=== PATIENT | female | born 1930 | race Caucasian/White ===

== ENCOUNTER 2017-01-17 18:48 | Emergency (ER) | payer MEDICARE ==
--- NOTE | 2017-01-17 22:39 | ER Document Report ---
ED General - General Chief Complaint: Arm Pain Stated Complaint: FALL/RIGHT ARM LACERATION Time Seen by Provider: 01/17/17 22:18 Notes: Patient is a 86-year-old female who presents after a fall. Patient was walking outside and fell and has a skin tear to her left forearm. She denies any other injuries. She denies any her head. No neck pain or back pain. No hip or pelvis pain. She has been up walking since the incident. Patient has no other complaints at this time. TRAVEL OUTSIDE OF THE [place] IN LAST 30 DAYS: No - Related Data Allergies/Adverse Reactions: No Known Allergies Allergy (Unverified 01/17/17 18:56) Past Medical History - Social History Smoking Status: Never Smoker Frequency of alcohol use: None Drug Abuse: None Family History: Reviewed & Not Pertinent Patient has suicidal ideation: No Patient has homicidal ideation: No Renal/ Medical History: Denies: Hx Peritoneal Dialysis Review of Systems - Review of Systems Notes: My Normal Review Basic REVIEW OF SYSTEMS: CONSTITUTIONAL : Denies fever, chills, or sweats. Denies recent illness. EENT: Denies eye, ear, throat, or mouth pain or symptoms. Denies nasal or sinus congestion. CARDIOVASCULAR: Denies chest pain. RESPIRATORY: Denies cough, cold, or chest congestion. Denies shortness of breath, difficulty breathing, or wheezing. MUSCULOSKELETAL: Denies neck or back pain or joint pain or swelling. SKIN: Skin tear left forearm. NEUROLOGICAL: Denies altered mental status or loss of consciousness. Denies headache. Denies weakness or paralysis or loss of use of either side. Denies problems with gait or speech. Denies sensory or motor loss. ALL OTHER SYSTEMS REVIEWED AND NEGATIVE. Physical Exam - Vital signs Vitals: Temp Pulse Resp BP Pulse Ox 97.9 F 73 20 146/65 H 95 01/17/17 18:58 01/17/17 18:58 01/17/17 18:58 01/17/17 18:58 01/17/17 18:58 - Notes Notes: General Appearance: Well nourished, alert, cooperative, no acute distress, no obvious discomfort. Well appearing. Vitals: reviewed, See vital signs table. Head: no swelling or tenderness to the head Eyes: PERRL, EOMI, Conjuctiva clear Mouth: No decreasd moisture Throat: No tonsillar inflammation, No airway obstruction, No lymphadenopathy Neck: Supple, no neck tenderness, Back: No tenderness to palpation of lumbar or thoracic spine. No step-offs or deformities. Lungs: No wheezing, No rales, No rhonci, No accessory muscle use, good air exchange bilaterally. Heart: Normal rate, Regular rythm, No murmur, no rub Abdomen: Normal BS, soft, No rigidity, No abdominal tenderness, No guarding, no rebound, no abdominal masses, no organomegaly Extremities: strength 5/5 in all extremities, good pulses in all extremities, no swelling or tenderness in the extremities, no edema. Skin: Approximately 10 cm long skin tear on the left forearm. No active bleeding. Neuro: speech clear, oriented x 3, normal affect, responds appropriately to questions. Course - Vital Signs Vital signs: Temp Pulse Resp BP Pulse Ox 97.8 F 64 18 128/70 H 100 01/17/17 22:44 01/17/17 22:44 01/17/17 22:44 01/17/17 22:44 01/17/17 22:44 - Transfer of Care Notes: 01/18/17 06:18 I cleaned the wounds thoroughly irrigated with saline and cleaned with peroxide. Steri-Strips to pull the skin edges together and covered it with a dressing. Patient encouraged to return to ER if she has any redness or swelling over the skin tear itself. Patient agrees with plan will be discharged home. Dictation of this chart was performed using voice recognition software; therefore, there may be some unintended grammatical errors. Discharge - Discharge Clinical Impression: Skin tear Condition: Good Disposition: HOME, SELF-CARE Additional Instructions: Please return to the ER immediately if you develop any redness or swelling to the arm or any signs of infections. You can remove the dressing from your arm in 3 days. After you remove the dressing you can gently clean with soap and water and recover with a clean, nonstick dressing. Referrals: ALEK JACOBS PA-C [Primary Care Provider] - Follow up as needed
[2017-01-17 22:45] VITALS: BP 128/70
== END 2017-01-17 23:05 | disposition home or self-care (01) ==
LOC: ER 18:48
DX: S51.812A Laceration without foreign body of left forearm, initial encounter (principal); W19.XXXA Unspecified fall, initial encounter; Y93.89 Activity, other specified; Y92.009 Unspecified place in unspecified non-institutional (private) residence as the place of occurrence of the external cause
CPT/HCPCS: 99283

== ENCOUNTER → 2017-08-26 | Outpatient (CLI) | payer MEDICARE, OTHER | LOC: OD 12:06 | PROVIDERS: ATTEND Nurse Practitioner Acute Care | DX: N39.0 Urinary tract infection, site not specified (principal) | CPT/HCPCS: 87086 ==

== ENCOUNTER 2017-12-14 13:57 | Inpatient (IN) | payer MEDICARE ==
[2017-12-14] MEDS ORDERED: ACETAMINOPHEN 325 MG TABLET PO ONE (14:19)
[2017-12-14] MEDS ORDERED: DIPH/PERTUSS(ACELL)/TETANUS VAC/PF 0.5 ML SYR (>=10YO) IM ONE (14:19)
--- NOTE | 2017-12-14 14:27 | ER Document Report ---
ED General - General Chief Complaint: Fall Injury Stated Complaint: POSSIBLE LEG FRACTURE Time Seen by Provider: 12/14/17 14:09 Mode of Arrival: Medic Information source: Patient, Relative Notes: 87-year-old female with dementia presents via EMS from home after a fall. Her family patient had 2 falls today that were unwitnessed. The first fall happened early this morning where she struck her left elbow against a table causing a significant skin tear. The second fall happened just prior to arrival while the patient was walking out of the bathroom. Family member states that they heard the fall and attended to the patient right away. Patient was unable to get up independently. She is unsure whether she struck her head or lost consciousness. She denies any preceding chest pain, shortness of breath, palpitations. Patient currently only takes a multivitamin. Patient currently complaining of right knee, right foot and ankle pain. TRAVEL OUTSIDE OF THE [place] IN LAST 30 DAYS: No - HPI Onset: Just prior to arrival Quality of pain: Achy, Throbbing Severity: Mild Pain Level: 1 Associated symptoms: denies: Chest pain, Nausea, Vomiting, Shortness of breath, Weakness Exacerbated by: Movement Relieved by: Remaining still Similar symptoms previously: No Recently seen / treated by doctor: No - Related Data Allergies/Adverse Reactions: No Known Allergies Allergy (Unverified 01/17/17 18:56) Past Medical History - General Information source: Patient, Relative - Social History Smoking Status: Former Smoker Frequency of alcohol use: None Drug Abuse: None Lives with: Family Family History: Reviewed & Not Pertinent Patient has suicidal ideation: No Patient has homicidal ideation: No Renal/ Medical History: Denies: Hx Peritoneal Dialysis Psychiatric Medical History: Reports: Hx Dementia Review of Systems - Review of Systems Constitutional: denies: Diaphoresis, Fever, Weakness EENT: denies: Blurred vision Cardiovascular: denies: Chest pain, Palpitations, Dizziness, Lightheaded Respiratory: denies: Short of breath Gastrointestinal: denies: Abdominal pain, Nausea, Vomiting Genitourinary: denies: Dysuria Female Genitourinary: No symptoms reported Musculoskeletal: Joint pain, Muscle pain. denies: Back pain, Neck pain, Deformity Skin: Other - Multiple skin tears Hematologic/Lymphatic: Easy bleeding Neurological/Psychological: Dementia. denies: Weakness, Speech impairment -: Yes All other systems reviewed and negative Physical Exam - Vital signs Vitals: Resp Pulse Ox 10 L 100 12/14/17 15:37 12/14/17 15:37 - Notes Notes: PHYSICAL EXAMINATION: GENERAL: Well-appearing, well-nourished and in no acute distress. GCS 15 HEAD: Atraumatic, normocephalic. EYES: Pupils equal round and reactive to light, extraocular movements intact, sclera anicteric, conjunctiva are normal. ENT: Nares patent, oropharynx clear without exudates. Moist mucous membranes. No hemanotympanum . No blood in nares. No dental fracture NECK: Normal range of motion, supple without lymphadenopathy. Trachea midline. No midline tenderness. No step-offs or deformities LUNGS: Breath sounds clear to auscultation bilaterally and equal. No wheezes rales or rhonchi. HEART: Regular rate and rhythm without murmurs. Pulses intact all throughout. ABDOMEN: Soft, nontender, nondistended abdomen. No guarding, no rebound. No masses appreciated. : Prolapsed uterus. Dime sized stage I decubitus ulcer Musculoskeletal: Decreased range of motion of the right lower extremity secondary to pain. Right lower extremity has external rotation, no obvious deformity, DP pulse intact. Tender to palpation along the right lateral foot. Associated ecchymosis. Left lower extremity-full range of motion. Patient moves all other extremities without pain. NEUROLOGICAL: Cranial nerves grossly intact. Normal speech, normal gait. Normal sensory, motor, and reflex exams. PSYCH: Normal mood, normal affect. SKIN: Large skin tear along the left elbow. 2 small skin tears right anterior moreau. Course - Re-evaluation Re-evalutation: Laboratory 12/14/17 12/14/17 12/14/17 16:33 16:33 16:33 WBC 16.8 H RBC 3.86 Hgb 10.7 L Hct 31.8 L MCV 82 MCH 27.7 MCHC 33.7 RDW 15.1 H Plt Count 393 Seg Neutrophils % 87.1 H Lymphocytes % 5.6 L Monocytes % 6.6 Eosinophils % 0.2 Basophils % 0.5 Absolute Neutrophils 14.6 H Absolute Lymphocytes 0.9 Absolute Monocytes 1.1 Absolute Eosinophils 0.0 Absolute Basophils 0.1 PT 13.8 INR 1.01 APTT 28.7 Sodium 128.2 L Potassium 4.0 Chloride 93 L Carbon Dioxide 26 Anion Gap 9 BUN 19 Creatinine 0.53 Est GFR ( Amer) > 60 Est GFR (Non-Af Amer) > 60 Glucose 108 Calcium 9.9 Total Bilirubin 0.5 Direct Bilirubin 0.3 Neonat Total Bilirubin Not Reportable Neonat Direct Bilirubin Not Reportable Neonat Indirect Bili Not Reportable AST 31 ALT 22 Alkaline Phosphatase 171 H Total Protein 5.8 L Albumin 3.0 L Knee X-Ray 12/14/17 00:00 IMPRESSION: NEGATIVE STUDY OF THE RIGHT KNEE. NO RADIOGRAPHIC EVIDENCE OF ACUTE INJURY. Cervical Spine CT 12/14/17 14:18 IMPRESSION: At least 50% compression of T1 is present related to lytic destruction of the majority of the T1 vertebral body. Protrusion of soft tissue into the spinal canal causing at least moderate central canal stenosis. Findings are worrisome for metastatic disease or myeloma at the T1 level. Elbow X-Ray 12/14/17 14:18 IMPRESSION: NEGATIVE STUDY OF THE LEFT ELBOW. NO RADIOGRAPHIC EVIDENCE OF ACUTE INJURY. Foot X-Ray 12/14/17 14:18 IMPRESSION: 1. Calcaneal spurs. 2. Degenerative joint changes in the 4th proximal interphalangeal joint. Cannot entirely exclude a small chip fracture in the head of the 4th proximal phalanx. Head CT 12/14/17 14:18 IMPRESSION: Limited study due to motion artifact. No acute findings EVIDENCE OF ACUTE STROKE: NO. Pelvis X-Ray 12/14/17 14:18 IMPRESSION: No acute fractures. Severe arthritic change both hips. Sclerotic/ cystic change trochanteric region right hip. Tibia/Fibula X-Ray 12/14/17 14:18 IMPRESSION: NEGATIVE STUDY OF THE RIGHT TIBIA AND FIBULA. NO RADIOGRAPHIC EVIDENCE OF ACUTE INJURY. Chest X-Ray 12/14/17 14:29 IMPRESSION: Large right upper lobe lung mass. Cervical Spine MRI 12/14/17 15:21 IMPRESSION: 1. LIMITED STUDY DUE TO MOTION ARTIFACT. EXTENSIVE METASTATIC INVOLVEMENT INVOLVING THE CERVICAL AND THORACIC VERTEBRAE. INVOLVEMENT IS MOST PRONOUNCED AT THE CERVICOTHORACIC JUNCTION WITH EXTENSIVE INVOLVEMENT OF THE VERTEBRA AND ADJACENT SOFT TISSUES. THERE IS ALSO INVOLVEMENT OF THE POSTERIOR VERTEBRAL BODY OF T1 RESULTING IN SPINAL STENOSIS AND COMPRESSION OF THE CORD. 2. LARGE MASS IN THE RIGHT LUNG WITH INVASION OF THE RIBS. Chest CT 12/14/17 15:21 IMPRESSION: Large right upper lobe lung mass extending from the right hilum with apparent direct invasion of the upper ribs. Additional osseous metastases are present as described. There are some additional right pulmonary nodules as described. Lumbar Spine MRI 12/14/17 15:21 IMPRESSION: 1. Limited study. Chronic degenerative changes in the lumbar spine. 2. Bony metastases. Enhancing lesion on the left side of the L2 vertebral body. Enhancing lesion on the right side of the sacral ala adjacent to the sacroiliac joint. There is also an enhancing lesion involving the left pedicle of the T12 vertebral body. 3. Probable metastatic lesion in the lower sacrum, not completely imaged. If clinically indicated, MRI of the sacrum may be required to further evaluate this finding. 87-year-old female with history of dementia presents from home after 2 falls today. Patient is hypertensive, afebrile. She does not appear toxic but does appear mildly dehydrated. She is alert and oriented 1 which family reports is her baseline. Significant exam findings include a large skin tear of the left elbow which was cleaned and dressed. Patient also has a skin tear of the right lower extremity, ecchymosis of the right foot. Patient has a small decubitus ulcer and a prolapsed bladder. 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 Patient and patient's family were unaware of this. I did speak to oncology on-call doctor Sadie who is agreeable to see the patient on consult. Patient received Dilaudid for pain. Patient will be admitted to the hospitalist. 12/14/17 15:36 To radiologist who states patient has a large mass in the right upper lung field with associated metastases to the spine. Niece who is the dice table operator has been informed. Additional imaging to assess for cord compression will be performed. 12/14/17 23:13 12/14/17 23:15 - Vital Signs Vital signs: Temp Pulse Resp BP Pulse Ox 98.6 F 20 179/80 H 99 12/14/17 17:01 12/14/17 20:01 12/14/17 20:01 12/14/17 17:01 - Laboratory Result Diagrams: 12/14/17 16:33 12/14/17 16:33 Laboratory results interpreted by me: 12/14/17 12/14/17 16:33 16:33 WBC 16.8 H Hgb 10.7 L Hct 31.8 L RDW 15.1 H Seg Neutrophils % 87.1 H Lymphocytes % 5.6 L Absolute Neutrophils 14.6 H Sodium 128.2 L Chloride 93 L Alkaline Phosphatase 171 H Total Protein 5.8 L Albumin 3.0 L - Diagnostic Test Radiology reviewed: Pending Discharge - Discharge Clinical Impression: Lung mass, Prolapsed bladder Metastasis Qualifiers: Area of secondary neoplastic involvement: bone Qualified Code(s): C79.51 - Secondary malignant neoplasm of bone Pressure ulcer of contiguous region involving buttock and hip, stage 1 Qualifiers: Laterality: unspecified laterality Qualified Code(s): L89.41 - Pressure ulcer of contiguous site of back, buttock and hip, stage 1 Fall Qualifiers: Encounter type: initial encounter Qualified Code(s): W19.XXXA - Unspecified fall, initial encounter Condition: Fair Disposition: ADMITTED INPATIENT Admitting Provider: Hospitalist Unit Admitted: Telemetry
--- NOTE | 2017-12-14 15:21 | RADIOLOGY REPORT (SQ) ---
EXAM DESCRIPTION: KNEE RIGHT 4 VIEWS COMPLETED DATE/TIME: 12/14/2017 3:10 pm REASON FOR STUDY: bed 8 +deformity bedside please COMPARISON: None. NUMBER OF VIEWS: Four views. TECHNIQUE: AP, lateral, and both oblique radiographic images acquired of the right knee. LIMITATIONS: None. FINDINGS: MINERALIZATION: Osteopenia. BONES: No acute fracture or dislocation. No worrisome bone lesions. JOINT: No effusion. SOFT TISSUES: No soft tissue swelling. No radio-opaque foreign body. OTHER: No other significant finding. IMPRESSION: NEGATIVE STUDY OF THE RIGHT KNEE. NO RADIOGRAPHIC EVIDENCE OF ACUTE INJURY. TECHNICAL DOCUMENTATION: JOB ID: [id number] [employer]- All Rights Reserved Reading location - IP/workstation name: [email or web address]
--- NOTE | 2017-12-14 15:23 | RADIOLOGY REPORT (SQ) ---
EXAM DESCRIPTION: CT HEAD WITHOUT COMPLETED DATE/TIME: 12/14/2017 3:13 pm REASON FOR STUDY: fall COMPARISON: None. TECHNIQUE: Axial images acquired through the brain without intravenous contrast. Images reviewed wi th bone, brain and subdural windows. Additional sagittal and coronal reconstructions were generated. Images stored on PACS. All CT scanners at this facility use dose modulation, iterative reconstruction, and/or weight based d osing when appropriate to reduce radiation dose to as low as reasonably achievable (ALARA). [facility]: Dose Right [facility]: CareDose [facility]: Dose Right [facility]: Teradose 4D [facility]: ITS KOOL RADIATION DOSE: CT Rad equipment meets quality standard of care and radiation dose reduction techniq ues were employed. CTDIvol: 53.2 mGy. DLP: 2034 mGy-cm. mGy. LIMITATIONS: MOTION ARTIFACT, PATIENT WAS SCANNED TWICE FINDINGS: Limited study due to motion artifact. On images without motion, no gross skull fracture is present. No acute large territory ischemic change, acute intracranial hemorrhage, mass effect, or midline shif t. Age-appropriate spotty mild low attenuation in the bifrontal and biparietal white matter with old rig ht frontal deep white matter lacunar infarct. Paranasal sinuses are clear. IMPRESSION: Limited study due to motion artifact. No acute findings EVIDENCE OF ACUTE STROKE: NO. COMMENT: Quality ID # [id number]: Final reports with documentation of one or more dose reduction techniques (e.g., Automated exposure control, adjustment of the mA and/or kV according to patient size, use of iterative reconstruction technique) TECHNICAL DOCUMENTATION: JOB ID: [id number] [employer]- All Rights Reserved Reading location - IP/workstation name: [email or web address]
--- NOTE | 2017-12-14 15:24 | RADIOLOGY REPORT (SQ) ---
EXAM DESCRIPTION: FOOT RIGHT COMPLETE COMPLETED DATE/TIME: 12/14/2017 3:10 pm REASON FOR STUDY: fall COMPARISON: None. NUMBER OF VIEWS: Three views. TECHNIQUE: AP, lateral and oblique radiographic images acquired of the right foot. LIMITATIONS: None. FINDINGS: MINERALIZATION: Osteopenia. BONES: No acute fracture or dislocation. Prominent plantar and dorsal calcaneal spurs are present. JOINTS: Degenerative changes seen in the 4th proximal interphalangeal joint with erosion of the head of the proximal phalanx and subluxation of the joint. A small chip fracture cannot be excluded. SOFT TISSUES: No soft tissue swelling. No foreign body. OTHER: No other significant finding. IMPRESSION: 1. Calcaneal spurs. 2. Degenerative joint changes in the 4th proximal interphalangeal joint. Cannot entirely exclude a small chip fracture in the head of the 4th proximal phalanx. TECHNICAL DOCUMENTATION: JOB ID: [id number] [employer]- All Rights Reserved Reading location - IP/workstation name: [email or web address]
--- NOTE | 2017-12-14 15:26 | RADIOLOGY REPORT (SQ) ---
EXAM DESCRIPTION: TIBIA FIBULA RIGHT COMPLETED DATE/TIME: 12/14/2017 3:10 pm REASON FOR STUDY: fall COMPARISON: None. NUMBER OF VIEWS: Two views. TECHNIQUE: Two radiographic images acquired of the right tibia and fibula to include the knee and an kle in at least one projection. LIMITATIONS: None. FINDINGS: MINERALIZATION: Osteopenia. BONES: No acute fracture or dislocation. No worrisome bone lesions. SOFT TISSUES: No obvious swelling or foreign body. OTHER: No other significant finding. IMPRESSION: NEGATIVE STUDY OF THE RIGHT TIBIA AND FIBULA. NO RADIOGRAPHIC EVIDENCE OF ACUTE INJURY. TECHNICAL DOCUMENTATION: JOB ID: [id number] [employer]- All Rights Reserved Reading location - IP/workstation name: [email or web address]
--- NOTE | 2017-12-14 15:29 | RADIOLOGY REPORT (SQ) ---
EXAM DESCRIPTION: PELVIS AP COMPLETED DATE/TIME: 12/14/2017 3:10 pm REASON FOR STUDY: fall COMPARISON: None. NUMBER OF VIEWS: One view TECHNIQUE: AP Pelvis LIMITATIONS: Patient body habitus and diffuse demineralization. FINDINGS: MINERALIZATION: Diffuse demineralization. Diffuse sclerotic/ cystic changes seen of the trochanteric region of the left hip. While this could represent artifact from overlying density, other etiologies including metastasis may need to be consi dered. Correlate clinically and with other imaging such as bone scan or PET. HIPS: No acute fracture or dislocation. See note above for right greater trochanter. Severe arthritic changes seen of both hips, with complete loss of joint space on the right and severe narrowing on the left. PELVIS AND SACRUM: No acute fracture or dislocation. No worrisome bone lesions. PUBIS AND ISCHIUM: No acute fracture. LOWER LUMBAR SPINE: No significant findings as visualized. SOFT TISSUES: Arterial calcification. OTHER: If an occult fracture suspected clinically, consider additional imaging. IMPRESSION: No acute fractures. Severe arthritic change both hips. Sclerotic/ cystic change trochanteric region right hip. TECHNICAL DOCUMENTATION: JOB ID: [id number] [employer]- All Rights Reserved Reading location - IP/workstation name: [email or web address]
--- NOTE | 2017-12-14 15:29 | RADIOLOGY REPORT (SQ) ---
EXAM DESCRIPTION: ELBOW LEFT AP/LATERAL COMPLETED DATE/TIME: 12/14/2017 3:10 pm REASON FOR STUDY: fall COMPARISON: None. NUMBER OF VIEWS: Two views. TECHNIQUE: AP and lateral radiographic images acquired of the left elbow. LIMITATIONS: None. FINDINGS: MINERALIZATION: Osteopenia. BONES: No acute fracture or dislocation. No worrisome bone lesions. JOINT: No effusion. SOFT TISSUES: No soft tissue swelling. No foreign body. OTHER: No other significant finding. IMPRESSION: NEGATIVE STUDY OF THE LEFT ELBOW. NO RADIOGRAPHIC EVIDENCE OF ACUTE INJURY. TECHNICAL DOCUMENTATION: JOB ID: [id number] [employer]- All Rights Reserved Reading location - IP/workstation name: [email or web address]
--- NOTE | 2017-12-14 15:31 | RADIOLOGY REPORT (SQ) ---
EXAM DESCRIPTION: CHEST 2 VIEWS COMPLETED DATE/TIME: 12/14/2017 3:10 pm REASON FOR STUDY: fall COMPARISON: None. EXAM PARAMETERS: NUMBER OF VIEWS: two views TECHNIQUE: Digital Frontal and Lateral radiographic views of the chest acquired. RADIATION DOSE: NA LIMITATIONS: none FINDINGS: LUNGS AND PLEURA: There is a 6 cm mass in the right upper lobe. No infiltrate or effusion is seen. MEDIASTINUM AND HILAR STRUCTURES: No masses or contour abnormalities. HEART AND VASCULAR STRUCTURES: Heart normal size. No evidence for failure. BONES: No acute findings. HARDWARE: None in the chest. OTHER: No other significant finding. IMPRESSION: Large right upper lobe lung mass. TECHNICAL DOCUMENTATION: JOB ID: [id number] [employer]- All Rights Reserved Reading location - IP/workstation name: [email or web address]
--- NOTE | 2017-12-14 15:31 | RADIOLOGY REPORT (SQ) ---
EXAM DESCRIPTION: CT CERVICAL SPINE WITHOUT COMPLETED DATE/TIME: 12/14/2017 3:13 pm REASON FOR STUDY: fall COMPARISON: Two-view chest 12/14/2017 TECHNIQUE: Axial images acquired through the cervical spine without intravenous contrast. Images re viewed with lung, soft tissue and bone windows. Reconstructed coronal and sagittal MPR images review ed. Images stored on PACS. All CT scanners at this facility use dose modulation, iterative reconstruction, and/or weight based d osing when appropriate to reduce radiation dose to as low as reasonably achievable (ALARA). [facility]: Dose Right [facility]: CareDose [facility]: Dose Right [facility]: Teradose 4D [facility]: Smart iZotope RADIATION DOSE: CT Rad equipment meets quality standard of care and radiation dose reduction techniq ues were employed. CTDIvol: 13.7 mGy. DLP: 515 mGy-cm. mGy. LIMITATIONS: None. FINDINGS: At the T1 level, there is lytic destruction of the nearly the entire vertebral body, left pedicle, lamina, and transverse process. At least 50% loss of height of T1 is present. Ventral and leftward epidural tumor is present causing at least moderate central canal stenosis on sagittal recon struction image 30. Soft tissue/tumor fills the left T1-2 neural foramen. Findings could be due to metastatic disease or myeloma. This result was discussed with Dr. Gomes. At the bottom edge of the field of view, a large mass is present in the posterior aspect right lung a pex with adjacent right posterior 3rd and 4th rib destruction. 1 cm lytic lesion in the right lateral mass of C2, best shown on coronal image 17 and axial image 18. ALIGNMENT: Anatomic. MINERALIZATION: Osteoporotic VERTEBRAL BODIES: No cervical spine vertebral body compressions. T1 as above. DISCS: Multilevel disc space narrowing with mild central canal stenosis and moderate bilateral forami nal narrowing at C4-5, C5-6, and C6-7. FACETS, LATERAL MASSES, POSTERIOR ELEMENTS: No acute findings in the cervical spine. Lytic destructi on of the left T1 lamina pedicle and transverse process. HARDWARE: None in the spine. VISUALIZED RIBS: Bony destruction posterior right 3rd and 4th ribs. LUNG APICES AND SOFT TISSUES: Right posterior apical lung mass OTHER: Results discussed with Dr. Gomes IMPRESSION: At least 50% compression of T1 is present related to lytic destruction of the majority o f the T1 vertebral body. Protrusion of soft tissue into the spinal canal causing at least moderate c entral canal stenosis. Findings are worrisome for metastatic disease or myeloma at the T1 level. TECHNICAL DOCUMENTATION: JOB ID: [id number] Quality ID # [id number]: Final reports with documentation of one or more dose reduction techniques (e.g., Au tomated exposure control, adjustment of the mA and/or kV according to patient size, use of iterative reconstruction technique) 2010 [employer]- All Rights Reserved Reading location - IP/workstation name: [email or web address]
[2017-12-14 16:45] LABS: ABSOLUTE BASOPHILS # (AUTO) 0.1 10^3/uL (0.0-0.2); ABSOLUTE LYMPHOCYTES (AUTO) 0.9 10^3/uL (0.5-4.7); ABSOLUTE MONOCYTES (AUTO) 1.1 10^3/uL (0.1-1.4); ABSOLUTE NEUT (AUTO) 14.6 10^3/uL (1.7-8.2); BASOPHILS % (AUTO) 0.5 % (0-2); EOSINOPHILS % (AUTO) 0.2 % (0-6); HEMATOCRIT 31.8 % (36.0-47.0); HEMOGLOBIN 10.7 g/dL (12.0-15.5); LYMPHOCYTES % (AUTO) 5.6 % (13-45); MEAN CORPUSCULAR HEMOGLOBIN 27.7 pg (27.0-33.4); MEAN CORPUSCULAR HGB CONC 33.7 g/dL (32.0-36.0); MEAN CORPUSCULAR VOLUME 82 fl (80-97); MONOCYTES % (AUTO) 6.6 % (3-13); PLATELET COUNT 393 10^3/uL (150-450); RED BLOOD COUNT 3.86 10^6/uL (3.72-5.28); RED CELL DISTRIBUTION WIDTH 15.1 % (11.5-14.0); SEGMENTED NEUTROPHILS % (AUTO) 87.1 % (42-78); TOTAL CELLS COUNTED % (AUTO) 100 %; WHITE BLOOD COUNT 16.8 10^3/uL (4.0-10.5)
[2017-12-14 16:55] LABS: INTERNATIONAL RATION (INR) 1.01; PROTHROMBIN TIME 13.8 SEC (11.4-15.4)
[2017-12-14 16:56] LABS: PARTIAL THROMBOPLASTIN TIME 28.7 SEC (23.5-35.8)
[2017-12-14 16:59] LABS: ALANINE AMINOTRANSFERASE 22 U/L (9-52); ALKALINE PHOSPHATASE 171 U/L (38-126); ANION GAP 9 (5-19); ASPARTATE AMINO TRANSFERASE 31 U/L (14-36); BILIRUBIN,DIRECT 0.3 mg/dL (0.0-0.4); BILIRUBIN,TOTAL 0.5 mg/dL (0.2-1.3); BLOOD UREA NITROGEN 19 mg/dL (7-20); CALCIUM 9.9 mg/dL (8.4-10.2); CARBON DIOXIDE 26 mmol/L (22-30); CHLORIDE 93 mmol/L (98-107); GLUCOSE 108 mg/dL (75-110); SODIUM 128.2 mmol/L (137-145); TOTAL PROTEIN 5.8 g/dL (6.3-8.2)
[2017-12-14] MEDS ORDERED: HYDROMORPHONE HCL INJ/PF 2 MG/ML AMPULE IV ONE ×2 (17:00→20:11)
--- NOTE | 2017-12-14 18:44 | EKG REPORT ---
SEVERITY:- OTHERWISE NORMAL ECG - SINUS RHYTHM LEFT AXIS DEVIATION : Confirmed by: Naren Mercedes MD 14-Dec-2017 18:43:49
--- NOTE | 2017-12-14 18:58 | RADIOLOGY REPORT (SQ) ---
EXAM DESCRIPTION: CT CHEST WITH COMPLETED DATE/TIME: 12/14/2017 5:45 pm REASON FOR STUDY: mass COMPARISON: None. TECHNIQUE: CT scan of the chest performed using helical scanning technique with dynamic intravenous contrast injection. Images reviewed with lung, soft tissue and bone windows. Reconstructed coronal and sagittal MPR images reviewed. All images stored on PACS. All CT scanners at this facility use dose modulation, iterative reconstruction, and/or weight based d osing when appropriate to reduce radiation dose to as low as reasonably achievable (ALARA). [facility]: Dose Right [facility]: CareDose [facility]: Dose Right [facility]: Teradose 4D [facility]: [employer] CONTRAST TYPE AND DOSE: contrast/concentration: Isovue 370.00 mg/ml; Total Contrast Delivered: 80.0 ml; Total Saline Delivered: 45.0 ml RENAL FUNCTION: BUN 19 creatinine 0.53 RADIATION DOSE: CT Rad equipment meets quality standard of care and radiation dose reduction techniq ues were employed. CTDIvol: 5.3 mGy. DLP: 211 mGy-cm. . LIMITATIONS: None. FINDINGS: LUNGS AND PLEURA: There is an 8.4 x 6.2 x 7.4 cm heterogeneous mass in the right upper lob e posteriorly. This extends superiorly and posteriorly from the right hilum. There appears to be in vasion of adjacent ribs. There is a 15 mm pleural-based mass on the right on image 29. There is an 8 mm pulmonary nodule seen posteriorly on the same image. HILAR AND MEDIASTINAL STRUCTURES: There is increased soft tissue density in the right hilum that is c onfluent with a large right upper lobe lung mass. HEART AND VASCULAR STRUCTURES: No aneurysm or dissection. No central pulmonary emboli. No pericardi al effusion. HARDWARE: None in the chest. UPPER ABDOMEN: No significant findings. Limited exam. THYROID AND OTHER SOFT TISSUES: No masses. No adenopathy. BONES: There is metastatic lesions an anterior rib on the left on image 38. There appears to be dire ct invasion of the 2nd and 3rd ribs on the right and possibly the 4th. Sclerotic lesions are seen in some of the lumbar vertebrae. See image 35. See image 26. See image 24. OTHER: No other significant finding. IMPRESSION: Large right upper lobe lung mass extending from the right hilum with apparent direct inv asion of the upper ribs. Additional osseous metastases are present as described. There are some add itional right pulmonary nodules as described. TECHNICAL DOCUMENTATION: JOB ID: [id number] Quality ID # [id number]: Final reports with documentation of one or more dose reduction techniques (e.g., Au tomated exposure control, adjustment of the mA and/or kV according to patient size, use of iterative reconstruction technique) 2010 [employer]- All Rights Reserved Reading location - IP/workstation name: [email or web address]
--- NOTE | 2017-12-14 20:39 | RADIOLOGY REPORT (SQ) ---
EXAM DESCRIPTION: MRI LUMBAR SPINE COMBO COMPLETED DATE/TIME: 12/14/2017 8:17 pm REASON FOR STUDY: mass COMPARISON: None. TECHNIQUE: Sagittal and Axial imaging includes T1, T1 post gadolinium, T2, STIR and gradient echo se quences. Coronal T2/HASTE imaging. CONTRAST TYPE AND DOSE: 7 mL Multihance. RENAL FUNCTION: GFR > 60. LIMITATIONS: Motion artifact. FINDINGS: VISUALIZED UPPER ABDOMEN: Limited evaluation. No acute or suspicious findings suggested. SEGMENTATION: No transitional anatomy. The lowest well-developed disc space is labeled L5-S1. ALIGNMENT: Anatomic. VERTEBRAE: Intact. No fractures. BONE MARROW: Enhancing lesion on the left side of the L2 vertebral body. Enhancing lesion involving the left pedicle of the T12 vertebral body. Enhancing lesion on the right side of the sacral ala adj acent to the right sacroiliac joint. DISC SIGNAL: Decreased height and signal. POSTERIOR ELEMENTS: Generally intact. No pars defect evident. HARDWARE: None in the spine. CORD AND CONUS: Normal in size and signal intensity. Conus at the appropriate level. SOFT TISSUES: No aortic aneurysm seen. No bulky retroperitoneal adenopathy or mass. No paraspinal mas s or fluid. L1-L2: No significant spinal stenosis or exit foraminal stenosis. L2-L3: No significant disc bulge. Moderate facet arthropathy. No significant spinal stenosis or exi t foraminal stenosis. L3-L4: Diffuse posterior annular disc bulge. Moderate facet arthropathy. Moderate spinal stenosis a nd exit foraminal stenosis. L4-L5: No significant disc bulge. Moderate to severe facet arthropathy. No significant spinal steno sis or exit foraminal stenosis. L5-S1: No significant spinal stenosis or exit foraminal stenosis. LOWER THORACIC: Incompletely imaged. No stenosis seen. SACRUM: There appears to be an enhancing lesion in the right side of the lower sacrum, best demonstra misha on the sagittal images. This is incompletely visualized. ENHANCEMENT: No abnormal enhancement. OTHER: No other significant findings. IMPRESSION: 1. Limited study. Chronic degenerative changes in the lumbar spine. 2. Bony metastases. Enhancing lesion on the left side of the L2 vertebral body. Enhancing lesion on the right side of the sacral ala adjacent to the sacroiliac joint. There is also an enhancing lesio n involving the left pedicle of the T12 vertebral body. 3. Probable metastatic lesion in the lower sacrum, not completely imaged. If clinically indicated, M RI of the sacrum may be required to further evaluate this finding. TECHNICAL DOCUMENTATION: JOB ID: [id number] [employer]- All Rights Reserved Reading location - IP/workstation name: [email or web address]
--- NOTE | 2017-12-14 20:56 | RADIOLOGY REPORT (SQ) ---
EXAM DESCRIPTION: MRI CERVICAL SPINE COMBO COMPLETED DATE/TIME: 12/14/2017 8:34 pm REASON FOR STUDY: mass COMPARISON: None. TECHNIQUE: Sagittal and Axial imaging of the cervical and thoracic spine includes T1, T2, STIR and g radient echo sequences. T1 post gadolinium sequences. CONTRAST TYPE AND DOSE: 7 mL Multihance. RENAL FUNCTION: GFR > 60. LIMITATIONS: Study markedly limited due to motion artifact. FINDINGS: LOCALIZER: No worrisome findings. ALIGNMENT: Normal. VERTEBRAE AND MARROW: Metastatic involvement of numerous cervical and thoracic vertebrae with no radha ow replacement. Abnormal marrow signal and enhancement. There is extensive involvement at the C6, C 7, and T1 level. There is extensive soft tissue expansion around the spinal column as well as encro achment within the spinal canal and compression of the cord. This is most pronounced involving the T 1 vertebral body. HARDWARE: None in the spine. CORD: Normal in size and signal intensity. SOFT TISSUES: Large mass in the right lung with invasion of the ribs, recently evaluated with CT. OTHER: No other significant finding. IMPRESSION: 1. LIMITED STUDY DUE TO MOTION ARTIFACT. EXTENSIVE METASTATIC INVOLVEMENT INVOLVING THE CERVICAL AND THORACIC VERTEBRAE. INVOLVEMENT IS MOST PRONOUNCED AT THE CERVICOTHORACIC JUNCTION WITH EXTENSIVE I NVOLVEMENT OF THE VERTEBRA AND ADJACENT SOFT TISSUES. THERE IS ALSO INVOLVEMENT OF THE POSTERIOR AURELIA TEBRAL BODY OF T1 RESULTING IN SPINAL STENOSIS AND COMPRESSION OF THE CORD. 2. LARGE MASS IN THE RIGHT LUNG WITH INVASION OF THE RIBS. TECHNICAL DOCUMENTATION: JOB ID: [id number] [employer]- All Rights Reserved Reading location - IP/workstation name: [email or web address]
[2017-12-14] MEDS ORDERED: ACETAMINOPHEN 325 MG TABLET PO PRN (21:25)
[2017-12-14] MEDS ORDERED: MAG HYDROX/AL HYDROX/SIMETH SUSP 30 ML UDCUP PO PRN (21:25)
[2017-12-14] MEDS ORDERED: ONDANSETRON HCL INJ/PF 4 MG/2 ML SDV IV PRN (21:25)
[2017-12-14] MEDS ORDERED: MAGNESIUM HYDROXIDE SUSP 30 ML UDCUP PO PRN (21:25)
[2017-12-14] MEDS ORDERED: IPRATROPIUM/ALBUTEROL 0.5-2.5 MG/3 ML AMPUL NEB PRN (21:25)
[2017-12-14] MEDS ORDERED: KETOROLAC TROMETHAMINE INJ/PF 30 MG/1 ML SDV IV PRN (21:28)
[2017-12-14] MEDS ORDERED: NORMAL SALINE 1000 ML 1,000 ML IV SCH (21:30)
[2017-12-14] MEDS ORDERED: HEPARIN SOD (PORCINE) 5,000 UNIT/ML 1 ML SYRINGE SUBCUT SCH (22:00)
[2017-12-14] MEDS: IPRATROPIUM/ALBUTEROL 0.5-2.5 MG/3 ML AMPUL NEB SCH (23:45)
--- NOTE | 2017-12-15 01:50 | PDOC H&P ---
History of Present Illness Admission Date/PCP: 12/14/17 21:34 BEE HERNANDEZ DO Patient complains of: Falls History of Present Illness: KISHAN REYNOLDS is a 87 year old female with past medical history of hypertension and dementia not currently taking medication. Presenting after sustaining to unprovoked falls resulting in skin tears to the left elbow and right foot pain. Workup in the emergency room reveals hyponatremia of 128, leukocytosis of 16.8 and a large right upper lobe lung mass with metastases to spine. She admits several falls in the recent past though denies shortness of breath, palpitations, headache, nausea vomiting or chest pain patient currently denies pain admits recent weight loss and is referred to the hospitalist for admission. Patient verifies CODE STATUS is DNR. Past Medical History Cardiac Medical History: Reports: Hypertension Psychiatric Medical History: Reports: Dementia, Tobacco Dependency Past Surgical History Past Surgical History: Reports: None Social History Information Source: Patient, Relative Lives with: Family Smoking Status: Former Smoker Drugs: None Family History Family History: COPD, Hypertension Parental Family History Reviewed: Yes Children Family History Reviewed: Yes Sibling(s) Family History Reviewed.: Yes Medication/Allergy Allergies/Adverse Reactions: No Known Allergies Allergy (Unverified 01/17/17 18:56) Review of Systems Constitutional: PRESENT: as per HPI, fatigue, weakness, weight loss Eyes: ABSENT: visual disturbances Ears: ABSENT: hearing changes Cardiovascular: ABSENT: chest pain, dyspnea on exertion, edema, orthropnea, palpitations Respiratory: ABSENT: cough, hemoptysis Gastrointestinal: ABSENT: abdominal pain, constipation, diarrhea, hematemesis, hematochezia, nausea, vomiting Genitourinary: ABSENT: dysuria, hematuria Musculoskeletal: ABSENT: joint swelling Integumentary: ABSENT: rash, wounds Neurological: PRESENT: as per HPI. ABSENT: abnormal gait, abnormal speech, confusion, dizziness, focal weakness, syncope Psychiatric: ABSENT: anxiety, depression, homidical ideation, suicidal ideation Endocrine: ABSENT: cold intolerance, heat intolerance, polydipsia, polyuria Hematologic/Lymphatic: ABSENT: easy bleeding, easy bruising Physical Exam Vital Signs: Temp Pulse Resp BP Pulse Ox 98.6 F 73 21 H 165/90 H 100 12/14/17 17:01 12/14/17 23:45 12/15/17 00:01 12/15/17 00:01 12/15/17 00:01 General appearance: PRESENT: no acute distress, cooperative, thin, well- developed, well-nourished, other - Temporal wasting with cachexia. ABSENT: mild distress Head exam: PRESENT: atraumatic, normocephalic Eye exam: PRESENT: conjunctiva pink, EOMI, PERRLA. ABSENT: scleral icterus Ear exam: PRESENT: normal external ear exam Mouth exam: PRESENT: dry mucosa, moist, tongue midline Neck exam: ABSENT: carotid bruit, JVD, lymphadenopathy, thyromegaly Respiratory exam: PRESENT: clear to auscultation meera, crackles. ABSENT: rales, rhonchi, wheezes Cardiovascular exam: PRESENT: RRR. ABSENT: diastolic murmur, rubs, systolic murmur Pulses: PRESENT: normal dorsalis pedis pul Vascular exam: PRESENT: normal capillary refill GI/Abdominal exam: PRESENT: normal bowel sounds, soft. ABSENT: distended, guarding, mass, organolmegaly, rebound, tenderness Rectal exam: PRESENT: deferred Extremities exam: PRESENT: full ROM. ABSENT: calf tenderness, clubbing, pedal edema Neurological exam: PRESENT: alert, awake, oriented to person, oriented to place , oriented to time, oriented to situation, CN II-XII grossly intact. ABSENT: motor sensory deficit Psychiatric exam: PRESENT: appropriate affect, normal mood. ABSENT: homicidal ideation, suicidal ideation Skin exam: PRESENT: dry, intact, skin tears - Left arm, warm. ABSENT: cyanosis , rash Results Impressions: Knee X-Ray 12/14/17 00:00 IMPRESSION: NEGATIVE STUDY OF THE RIGHT KNEE. NO RADIOGRAPHIC EVIDENCE OF ACUTE INJURY. Cervical Spine CT 12/14/17 14:18 IMPRESSION: At least 50% compression of T1 is present related to lytic destruction of the majority of the T1 vertebral body. Protrusion of soft tissue into the spinal canal causing at least moderate central canal stenosis. Findings are worrisome for metastatic disease or myeloma at the T1 level. Elbow X-Ray 12/14/17 14:18 IMPRESSION: NEGATIVE STUDY OF THE LEFT ELBOW. NO RADIOGRAPHIC EVIDENCE OF ACUTE INJURY. Foot X-Ray 12/14/17 14:18 IMPRESSION: 1. Calcaneal spurs. 2. Degenerative joint changes in the 4th proximal interphalangeal joint. Cannot entirely exclude a small chip fracture in the head of the 4th proximal phalanx. Head CT 12/14/17 14:18 IMPRESSION: Limited study due to motion artifact. No acute findings EVIDENCE OF ACUTE STROKE: NO. Pelvis X-Ray 12/14/17 14:18 IMPRESSION: No acute fractures. Severe arthritic change both hips. Sclerotic/ cystic change trochanteric region right hip. Tibia/Fibula X-Ray 12/14/17 14:18 IMPRESSION: NEGATIVE STUDY OF THE RIGHT TIBIA AND FIBULA. NO RADIOGRAPHIC EVIDENCE OF ACUTE INJURY. Chest X-Ray 12/14/17 14:29 IMPRESSION: Large right upper lobe lung mass. Cervical Spine MRI 12/14/17 15:21 IMPRESSION: 1. LIMITED STUDY DUE TO MOTION ARTIFACT. EXTENSIVE METASTATIC INVOLVEMENT INVOLVING THE CERVICAL AND THORACIC VERTEBRAE. INVOLVEMENT IS MOST PRONOUNCED AT THE CERVICOTHORACIC JUNCTION WITH EXTENSIVE INVOLVEMENT OF THE VERTEBRA AND ADJACENT SOFT TISSUES. THERE IS ALSO INVOLVEMENT OF THE POSTERIOR VERTEBRAL BODY OF T1 RESULTING IN SPINAL STENOSIS AND COMPRESSION OF THE CORD. 2. LARGE MASS IN THE RIGHT LUNG WITH INVASION OF THE RIBS. Chest CT 12/14/17 15:21 IMPRESSION: Large right upper lobe lung mass extending from the right hilum with apparent direct invasion of the upper ribs. Additional osseous metastases are present as described. There are some additional right pulmonary nodules as described. Lumbar Spine MRI 12/14/17 15:21 IMPRESSION: 1. Limited study. Chronic degenerative changes in the lumbar spine. 2. Bony metastases. Enhancing lesion on the left side of the L2 vertebral body. Enhancing lesion on the right side of the sacral ala adjacent to the sacroiliac joint. There is also an enhancing lesion involving the left pedicle of the T12 vertebral body. 3. Probable metastatic lesion in the lower sacrum, not completely imaged. If clinically indicated, MRI of the sacrum may be required to further evaluate this finding. 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 Normal saline challenge reevaluate chemistry
[2017-12-15] MEDS ORDERED: HEPARIN SOD (PORCINE) 5,000 UNIT/ML 1 ML SYRINGE SUBCUT ONE (02:15)
[2017-12-15 05:02] LABS: ABSOLUTE BASOPHILS # (AUTO) 0.1 10^3/uL (0.0-0.2); ABSOLUTE LYMPHOCYTES (AUTO) 0.8 10^3/uL (0.5-4.7); ABSOLUTE NEUT (AUTO) 12.7 10^3/uL (1.7-8.2); BASOPHILS % (AUTO) 0.4 % (0-2); EOSINOPHILS % (AUTO) 0.1 % (0-6); HEMATOCRIT 31.9 % (36.0-47.0); HEMOGLOBIN 10.6 g/dL (12.0-15.5); LYMPHOCYTES % (AUTO) 5.3 % (13-45); MEAN CORPUSCULAR HEMOGLOBIN 27.6 pg (27.0-33.4); MEAN CORPUSCULAR HGB CONC 33.2 g/dL (32.0-36.0); MEAN CORPUSCULAR VOLUME 83 fl (80-97); MONOCYTES % (AUTO) 6.7 % (3-13); PLATELET COUNT 354 10^3/uL (150-450); RED BLOOD COUNT 3.83 10^6/uL (3.72-5.28); RED CELL DISTRIBUTION WIDTH 15.2 % (11.5-14.0); SEGMENTED NEUTROPHILS % (AUTO) 87.5 % (42-78); TOTAL CELLS COUNTED % (AUTO) 100 %; WHITE BLOOD COUNT 14.5 10^3/uL (4.0-10.5)
[2017-12-15 05:21] LABS: ANION GAP 10 (5-19); BLOOD UREA NITROGEN 17 mg/dL (7-20); CALCIUM 9.6 mg/dL (8.4-10.2); CARBON DIOXIDE 24 mmol/L (22-30); CHLORIDE 96 mmol/L (98-107); GLUCOSE 118 mg/dL (75-110); POTASSIUM 4.1 mmol/L (3.6-5.0); SODIUM 129.6 mmol/L (137-145)
[2017-12-15 07:13] LABS: AMORPHOUS SEDIMENT,URINE TRACE /HPF; APPEARANCE,URINE CLOUDY; BILIRUBIN,URINE NEGATIVE (NEGATIVE); COLOR,URINE YELLOW; GLUCOSE, URINE NEGATIVE (NEGATIVE); KETONES,URINE TRACE mg/dL (NEGATIVE); LEUKOCYTE ESTERASE,URINE NEGATIVE (NEGATIVE); NITRITE,URINE NEGATIVE (NEGATIVE); PROTEIN,URINE NEGATIVE (NEGATIVE)
[2017-12-15] MEDS: IPRATROPIUM/ALBUTEROL 0.5-2.5 MG/3 ML AMPUL NEB SCH (08:59)
[2017-12-15] MEDS ORDERED: HYDROMORPHONE HCL INJ/PF 2 MG/ML AMPULE IV PRN (08:59)
[2017-12-15] MEDS: DOCUSATE SODIUM 100 MG CAPSULE PO SCH ×2 (09:50→18:34)
[2017-12-15] MEDS ORDERED: LORAZEPAM INJ 2 MG/1 ML VIAL IV PRN (11:42)
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
[2017-12-15] MEDS: MORPHINE SULFATE 10 MG/ML INJ IV PRN ×5 (12:17→22:05)
[2017-12-15] MEDS ORDERED: SCOPOLAMINE HYDROBROMIDE 1.5 MG PATCH.TD72 TD ONE (13:00)
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
[2017-12-15] MEDS ORDERED: HEPARIN SOD (PORCINE) 5,000 UNIT/ML 1 ML SYRINGE SUBCUT SCH (14:00)
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
[2017-12-16] MEDS: MORPHINE SULFATE 10 MG/ML INJ IV PRN ×4 (03:18→10:42)
--- NOTE | 2017-12-16 08:55 | PDOC PROGRESS REPORT ---
Subjective Progress Note for:: 12/16/17 Subjective:: Patient speaks some words, but is not always understandable. Happy about plans to go home today. Denies pain currently. Reason For Visit: FALL, LUNG MASS W METS, HYPONATREMIA Physical Exam Vital Signs: Temp Pulse Resp BP Pulse Ox 98.0 F 73 18 126/49 H 100 12/16/17 01:19 12/16/17 02:00 12/16/17 01:19 12/16/17 01:19 12/16/17 01:19 Intake & Output 12/15/17 12/16/17 12/17/17 06:59 06:59 06:59 Intake Total 1001 449 Output Total 500 490 Balance 501 -41 Weight 57.2 kg General appearance: PRESENT: no acute distress Musculoskeletal exam: PRESENT: other - Unchanged. Right elbow bandaged. Left leg in immobilizer. Skin exam: PRESENT: other - Echymoses throughout. Results Laboratory Results: 12/15/17 04:40 12/15/17 04:40 Impressions: Knee X-Ray 12/14/17 00:00 IMPRESSION: NEGATIVE STUDY OF THE RIGHT KNEE. NO RADIOGRAPHIC EVIDENCE OF ACUTE INJURY. Cervical Spine CT 12/14/17 14:18 IMPRESSION: At least 50% compression of T1 is present related to lytic destruction of the majority of the T1 vertebral body. Protrusion of soft tissue into the spinal canal causing at least moderate central canal stenosis. Findings are worrisome for metastatic disease or myeloma at the T1 level. Elbow X-Ray 12/14/17 14:18 IMPRESSION: NEGATIVE STUDY OF THE LEFT ELBOW. NO RADIOGRAPHIC EVIDENCE OF ACUTE INJURY. Foot X-Ray 12/14/17 14:18 IMPRESSION: 1. Calcaneal spurs. 2. Degenerative joint changes in the 4th proximal interphalangeal joint. Cannot entirely exclude a small chip fracture in the head of the 4th proximal phalanx. Head CT 12/14/17 14:18 IMPRESSION: Limited study due to motion artifact. No acute findings EVIDENCE OF ACUTE STROKE: NO. Pelvis X-Ray 12/14/17 14:18 IMPRESSION: No acute fractures. Severe arthritic change both hips. Sclerotic/ cystic change trochanteric region right hip. Tibia/Fibula X-Ray 12/14/17 14:18 IMPRESSION: NEGATIVE STUDY OF THE RIGHT TIBIA AND FIBULA. NO RADIOGRAPHIC EVIDENCE OF ACUTE INJURY. Chest X-Ray 12/14/17 14:29 IMPRESSION: Large right upper lobe lung mass. Cervical Spine MRI 12/14/17 15:21 IMPRESSION: 1. LIMITED STUDY DUE TO MOTION ARTIFACT. EXTENSIVE METASTATIC INVOLVEMENT INVOLVING THE CERVICAL AND THORACIC VERTEBRAE. INVOLVEMENT IS MOST PRONOUNCED AT THE CERVICOTHORACIC JUNCTION WITH EXTENSIVE INVOLVEMENT OF THE VERTEBRA AND ADJACENT SOFT TISSUES. THERE IS ALSO INVOLVEMENT OF THE POSTERIOR VERTEBRAL BODY OF T1 RESULTING IN SPINAL STENOSIS AND COMPRESSION OF THE CORD. 2. LARGE MASS IN THE RIGHT LUNG WITH INVASION OF THE RIBS. Chest CT 12/14/17 15:21 IMPRESSION: Large right upper lobe lung mass extending from the right hilum with apparent direct invasion of the upper ribs. Additional osseous metastases are present as described. There are some additional right pulmonary nodules as described. Lumbar Spine MRI 12/14/17 15:21 IMPRESSION: 1. Limited study. Chronic degenerative changes in the lumbar spine. 2. Bony metastases. Enhancing lesion on the left side of the L2 vertebral body. Enhancing lesion on the right side of the sacral ala adjacent to the sacroiliac joint. There is also an enhancing lesion involving the left pedicle of the T12 vertebral body. 3. Probable metastatic lesion in the lower sacrum, not completely imaged. If clinically indicated, MRI of the sacrum may be required to further evaluate this finding. Assessment & Plan - Diagnosis (1) Cervical spinal cord compression Is this a current diagnosis for this admission?: Yes (2) Lung mass Is this a current diagnosis for this admission?: Yes (3) Hyponatremia Is this a current diagnosis for this admission?: Yes - Plan Summary Plan Summary: I agree with plans for discharge to with Hospice. Comfort measures only. I will sign off. Please feel free to call if needed.
[2017-12-16 08:58] VITALS: BP 146/55
--- NOTE | 2017-12-16 09:55 | PDOC DISCHARGE SUMMARY ---
General - Admit/Disc Date/PCP Admission Date/Primary Care Provider: 12/14/17 21:34 BEE HERNANDEZ, DO Discharge Date: 12/16/17 - Additional Information Resuscitation Status: Do Not Resuscitate Discharge Diet: As Tolerated Prescriptions: Docusate Sodium [Colace 100 mg Capsule] 100 mg PO BID #14 capsule Morphine Sulfate [Morphine Ir 15 mg Tablet] 15 mg PO Q8H PRN #45 tablet PRN Reason: Scopolamine Hydrobromide [Transderm-Scop 1.5 mg Patch] 1 each TD Q3DAYS #5 patch.[id number] Home Medications: Multivitamin [One-A-Day Essential] 1 tab PO DAILY 12/15/17 Docusate Sodium [Colace 100 mg Capsule] 100 mg PO BID #14 capsule 12/16/17 Morphine Sulfate [Morphine Ir 15 mg Tablet] 15 mg PO Q8H PRN #45 tablet Scopolamine Hydrobromide [Transderm-Scop 1.5 mg Patch] 1 each TD Q3DAYS #5 patch.[id number] 12/16/17 History of Present Illness History of Present Illness: KISHAN REYNOLDS is a 87 year old female Hospital Course Hospital Course: The patient is an 87-year-old female who had been healthy all of her life. A few weeks ago she started having issues with uncontrolled pain. She had been referred to an neurologist as an outpatient. The patient was brought to the hospital after having a fall at home. She had a severe skin tear on her left arm. During her workup in the emergency room she was found to have a very large right upper lobe lung mass. There was invasion of the adjacent ribs and another pleural-based mass in the right as well. There were metastatic lesions noted in the cervical, thoracic and lumbar spine. She did have an MRI of the cervical spine which revealed metastatic involvement that was quite extensive at the C6, C7 and T1 level. There was expansion around the spinal column and almost complete compression of the cord. This was most pronounced involving the T1 vertebrae. She was admitted to the hospital. She was started on IV pain medications. She was seen by Dr. Mtz of oncology who was quite concerned regarding the patient's cervical spine lesion that she stated could totally compress the spine and spinal cord at any time causing sudden . The recommendation from the oncology service was comfort measures and hospice. The patient's niece, Lois Marion, who is the patient's healthcare power of ip technology transactions attorney--telephone number [phone] -- appreciated the situation. She made a decision to transition the patient to comfort measures and focus all efforts on making her comfortable. Patient was seen by palliative care service. She is being discharged to home to receive hospice care. When I saw her today, stated pain is doing okay on current regimen. Physical Exam Vital Signs: Temp Pulse Resp BP Pulse Ox 98.1 F 75 14 146/55 H 98 12/16/17 08:09 12/16/17 08:09 12/16/17 08:09 12/16/17 08:09 12/16/17 08:09 Intake & Output 12/15/17 12/16/17 12/17/17 06:59 06:59 06:59 Intake Total 1001 449 Output Total 500 490 Balance 501 -41 Weight 57.2 kg General appearance: PRESENT: thin, other - She is chronically ill-appearing and cachectic. Head exam: PRESENT: normocephalic Mouth exam: PRESENT: moist, tongue midline Respiratory exam: PRESENT: rhonchi - Coarse rhonchi throughout all lung welch Cardiovascular exam: PRESENT: RRR. ABSENT: diastolic murmur, rubs, systolic murmur GI/Abdominal exam: PRESENT: normal bowel sounds, soft. ABSENT: distended, guarding, mass, organolmegaly, rebound, tenderness Rectal exam: PRESENT: deferred Gentrourinary exam: PRESENT: indwelling catheter Extremities exam: PRESENT: other - Significant skin tears and ecchymosis is over her left arm. Musculoskeletal exam: ABSENT: ambulatory Neurological exam: PRESENT: alert, awake, oriented to person, oriented to place. ABSENT: oriented to time, oriented to situation Psychiatric exam: PRESENT: appropriate affect, normal mood. ABSENT: homicidal ideation, suicidal ideation Skin exam: PRESENT: abrasion, skin tears Results Laboratory Results: 12/15/17 04:40 12/15/17 04:40 Impressions: Knee X-Ray 12/14/17 00:00 IMPRESSION: NEGATIVE STUDY OF THE RIGHT KNEE. NO RADIOGRAPHIC EVIDENCE OF ACUTE INJURY. Cervical Spine CT 12/14/17 14:18 IMPRESSION: At least 50% compression of T1 is present related to lytic destruction of the majority of the T1 vertebral body. Protrusion of soft tissue into the spinal canal causing at least moderate central canal stenosis. Findings are worrisome for metastatic disease or myeloma at the T1 level. Elbow X-Ray 12/14/17 14:18 IMPRESSION: NEGATIVE STUDY OF THE LEFT ELBOW. NO RADIOGRAPHIC EVIDENCE OF ACUTE INJURY. Foot X-Ray 12/14/17 14:18 IMPRESSION: 1. Calcaneal spurs. 2. Degenerative joint changes in the 4th proximal interphalangeal joint. Cannot entirely exclude a small chip fracture in the head of the 4th proximal phalanx. Head CT 12/14/17 14:18 IMPRESSION: Limited study due to motion artifact. No acute findings EVIDENCE OF ACUTE STROKE: NO. Pelvis X-Ray 12/14/17 14:18 IMPRESSION: No acute fractures. Severe arthritic change both hips. Sclerotic/ cystic change trochanteric region right hip. Tibia/Fibula X-Ray 12/14/17 14:18 IMPRESSION: NEGATIVE STUDY OF THE RIGHT TIBIA AND FIBULA. NO RADIOGRAPHIC EVIDENCE OF ACUTE INJURY. Chest X-Ray 12/14/17 14:29 IMPRESSION: Large right upper lobe lung mass. Cervical Spine MRI 12/14/17 15:21 IMPRESSION: 1. LIMITED STUDY DUE TO MOTION ARTIFACT. EXTENSIVE METASTATIC INVOLVEMENT INVOLVING THE CERVICAL AND THORACIC VERTEBRAE. INVOLVEMENT IS MOST PRONOUNCED AT THE CERVICOTHORACIC JUNCTION WITH EXTENSIVE INVOLVEMENT OF THE VERTEBRA AND ADJACENT SOFT TISSUES. THERE IS ALSO INVOLVEMENT OF THE POSTERIOR VERTEBRAL BODY OF T1 RESULTING IN SPINAL STENOSIS AND COMPRESSION OF THE CORD. 2. LARGE MASS IN THE RIGHT LUNG WITH INVASION OF THE RIBS. Chest CT 12/14/17 15:21 IMPRESSION: Large right upper lobe lung mass extending from the right hilum with apparent direct invasion of the upper ribs. Additional osseous metastases are present as described. There are some additional right pulmonary nodules as described. Lumbar Spine MRI 12/14/17 15:21 IMPRESSION: 1. Limited study. Chronic degenerative changes in the lumbar spine. 2. Bony metastases. Enhancing lesion on the left side of the L2 vertebral body. Enhancing lesion on the right side of the sacral ala adjacent to the sacroiliac joint. There is also an enhancing lesion involving the left pedicle of the T12 vertebral body. 3. Probable metastatic lesion in the lower sacrum, not completely imaged. If clinically indicated, MRI of the sacrum may be required to further evaluate this finding. Qualifiers - * PATIENT BEING DISCHARGED WITH ANY OF THE FOLLOWING DIAGNOSIS: No
[2017-12-16] MEDS: DOCUSATE SODIUM 100 MG CAPSULE PO SCH (10:14)
[2017-12-18] MEDS ORDERED: SCOPOLAMINE HYDROBROMIDE 1.5 MG PATCH.TD72 TD SCH (10:00)
== END 2017-12-16 14:18 | disposition hospice, home (50) | DRG 181 ==
LOC: ER 13:57 → EH 21:34 → 3W 12-15 03:08
PROVIDERS: ADMIT Internal Medicine; ATTEND Internal Medicine
PROC: 3E0F73Z Introduction of Anti-inflammatory into Respiratory Tract, Via Natural or Artificial Opening (ICD-10-PCS; principal; 2017-12-14)
PROC: 3E0234Z Introduction of Serum, Toxoid and Vaccine into Muscle, Percutaneous Approach (ICD-10-PCS; 2017-12-14)
DX: C34.11 Malignant neoplasm of upper lobe, right bronchus or lung (principal); R64 Cachexia; C79.51 Secondary malignant neoplasm of bone; E87.1 Hypo-osmolality and hyponatremia; Z66 Do not resuscitate; S14.109A Unspecified injury at unspecified level of cervical spinal cord, initial encounter; Z51.5 Encounter for palliative care; Z68.20 Body mass index [BMI] 20.0-20.9, adult; Z87.891 Personal history of nicotine dependence; E86.0 Dehydration; R41.0 Disorientation, unspecified; W19.XXXA Unspecified fall, initial encounter; S51.012A Laceration without foreign body of left elbow, initial encounter; S81.811A Laceration without foreign body, right lower leg, initial encounter; L89.41 Pressure ulcer of contiguous site of back, buttock and hip, stage 1; I10 Essential (primary) hypertension; F03.90 Unspecified dementia, unspecified severity, without behavioral disturbance, psychotic disturbance, mood disturbance, and anxiety; D63.8 Anemia in other chronic diseases classified elsewhere; M77.31 Calcaneal spur, right foot; N81.10 Cystocele, unspecified; Z23 Encounter for immunization; Z90.49 Acquired absence of other specified parts of digestive tract; Z90.710 Acquired absence of both cervix and uterus; Z89.022 Acquired absence of left finger(s); Z83.6 Family history of other diseases of the respiratory system; Z82.49 Family history of ischemic heart disease and other diseases of the circulatory system; Y92.019 Unspecified place in single-family (private) house as the place of occurrence of the external cause
CPT/HCPCS: 36415; 70450; 71046; 71260; 72125; 72156; 72158; 72170; 80048; 80053; 81001; 84100; 85025; 85610; 85730; 90471; 90715; 93005; 93010; 94640; 96374; 96376; 99285; J1170; J1644; J1885; J2060; J2270; J7030; J7620